=== PATIENT | female | born 1955 | race Caucasian/White ===

== ENCOUNTER 2018-02-08 03:08 | Inpatient (IN) | payer BC ==
[~2018-02-08] VITALS: Ht 172.7 cm; Wt 126.4 kg
[2018-02-08 03:14] VITALS: Ht 172.7 cm; Wt 126.4 kg
[2018-02-08 04:03] LABS: CALCIUM 8.6 mg/dL (8.5-10.1); CARBON DIOXIDE 27.1 mmol/L (21-32); CHLORIDE SERUM 108 mmol/L (98-107); CREATININE SERUM 0.9 mg/dL (0.6-1.0); GFR1 > 60 mL/min; GLUCOSE SERUM 103 mg/dL (74-106); SODIUM SERUM 140 mmol/L (136-145)
[2018-02-08 04:04] LABS: BASOPHIL % 0.9 % (0-2); PLATELET COUNT 204 x10^3mcL (130-400); RED CELL DISTRIBUTION WIDTH 13.7 % (11.5-14.5)
[2018-02-08 04:07] LABS: ALKALINE PHOSPHATASE 119 U/L (46-116); ALT/SGPT 22 U/L (14-59); AST/SGOT 16 U/L (15-37); BILIRUBIN TOTAL 0.4 mg/dL (0.20-1.00); TOTAL PROTEIN, SERUM 6.3 g/dL (6.4-8.2)
[2018-02-08 04:12] LABS: ALBUMIN 3.1 g/dL (3.4-5.0)
[2018-02-08] MEDS ORDERED: ZOLOFT50 MG PO (05:29)
[2018-02-08] MEDS ORDERED: COZAAR100 MG PO (05:29)
[2018-02-08] MEDS ORDERED: NOR10 PO (05:29)
[2018-02-08 06:05] VITALS: BP 138/76
[2018-02-08 06:39] LABS: CHOLESTEROL/HDL RATIO 3.6; MAGNESIUM 2.1 mg/dL (1.8-2.4); PHOSPHOROUS 3.8 mg/dL (2.5-4.9)
[2018-02-08 06:49] LABS: FREE T4 1.02 ng/dL (0.76-1.46); FREE THYROXINE INDEX 2.6 ug/dL (1.4-4.5); T4(THYROXINE) 8.1 ug/dL (4.7-13.3)
[2018-02-08 06:55] LABS: T3 TOTAL 1.22 ng/mL
[2018-02-08 09:22] VITALS: BP 126/72
[2018-02-08 12:50] VITALS: BP 179/104
[2018-02-08 15:08] LABS: microscopic required? NO
[2018-02-08 15:25] LABS: UA SPECIFIC GRAVITY 1.025 (1.005-1.035); urine erythrocyte NEGATIVE (NEGATIVE)
[2018-02-08 15:38] LABS: AMPHETAMINE QUAL UR NONE DETECTED (See below)
[2018-02-08 17:48] VITALS: BP 147/80
[2018-02-08 20:29] VITALS: BP 162/7; BP 162/75
[2018-02-09 05:18] VITALS: BP 177/85
[2018-02-09 05:59] VITALS: BP 134/69
[2018-02-09 06:45] LABS: CALCIUM 8.4 mg/dL (8.5-10.1); CHLORIDE SERUM 112 mmol/L (98-107); CREATININE SERUM 0.8 mg/dL (0.6-1.0); GFR1 > 60 mL/min; GLUCOSE SERUM 104 mg/dL (74-106); POTASSIUM SERUM 3.9 mmol/L (3.5-5.1); SODIUM SERUM 146 mmol/L (136-145)
[2018-02-09 06:55] LABS: PLATELET COUNT 195 x10^3mcL (130-400); RED CELL DISTRIBUTION WIDTH 13.8 % (11.5-14.5)
[2018-02-09 08:27] VITALS: BP 146/86
[2018-02-09] MEDS ORDERED: PRILOSEC OTC20 M1 PO (11:00)
[2018-02-09 11:47] VITALS: BP 146/86
== END 2018-02-09 11:57 | disposition home or self-care (01) | DRG 391 ==
LOC: ED 03:08 → DU 05:22
PROVIDERS: Emergency Medicine; General Practice
DX: K29.70 Gastritis, unspecified, without bleeding (principal); N17.0 Acute kidney failure with tubular necrosis; E44.0 Moderate protein-calorie malnutrition; Z68.41 Body mass index [BMI] 40.0-44.9, adult; I16.0 Hypertensive urgency; R73.03 Prediabetes; I45.10 Unspecified right bundle-branch block; F32.9 Major depressive disorder, single episode, unspecified; F41.9 Anxiety disorder, unspecified; I10 Essential (primary) hypertension; Z88.5 Allergy status to narcotic agent; Z88.0 Allergy status to penicillin; Z88.2 Allergy status to sulfonamides; Z90.49 Acquired absence of other specified parts of digestive tract; Z98.84 Bariatric surgery status; Z79.82 Long term (current) use of aspirin; Z79.899 Other long term (current) drug therapy; Z90.710 Acquired absence of both cervix and uterus
CPT/HCPCS: 83880; 84439; 85378; J7030; Q0092